=== PATIENT | female | born 1935 | race African-American/Black ===

== ENCOUNTER 2019-08-13 13:43 | Inpatient (IN) | payer MEDICARE, OTHER ==
[~2019-08-13] VITALS: Ht 160 cm; Wt 82.6 kg
[2019-08-13 15:41] LABS: PROTHROMBIN TIME 10.5 sec (9.6-11.0)
[2019-08-13 15:42] LABS: BASOPHILS % 0.5 % (0.0-2.0); EOSINOPHILS % 1.5 % (0.0-5.0); HEMATOCRIT. 36.8 % (36.0-48.0); HEMOGLOBIN. 12.1 g/dL (12.0-16.0); MEAN CORPUSCULAR HEMOGLOBIN 30.8 pg (28.0-32.0); MEAN CORPUSCULAR VOLUME 93.8 fL (81.0-99.0); MEAN PLATELET VOLUME 8.4 fl (7.4-10.4); MONOCYTES % 8.4 % (2.0-8.0); NEUTROPHILS % 76.6 % (40.0-76.0); PLATELET 262 x1000/uL (130-400); RED BLOOD CELL COUNT 3.93 mill/uL (4.2-5.4); RED CELL DISTRIBUTION WIDTH 15.1 % (11.6-14.6)
[2019-08-13 15:43] LABS: CHLORIDE 108 mEq/L (98-107)
[2019-08-13 15:48] LABS: ETHANOL BLOOD < 10 mg/dL
[2019-08-13] MEDS ORDERED: SODIUM CHLORIDE 0.9% 500 ML IV ONE (16:00)
[2019-08-13] MEDS ORDERED: DOCUSATE SODIUM 100MG CAPSULE PO PRN (19:15)
[2019-08-13] MEDS ORDERED: LORAZEPAM 0.5MG TABLET PO PRN (19:15)
[2019-08-13] MEDS ORDERED: ONDANSETRON HCL 4MG/2ML INJ IV PRN (19:15)
[2019-08-13] MEDS ORDERED: ACETAMINOPHEN 325MG TABLET PO PRN (19:15)
[2019-08-13] MEDS ORDERED: IPRATROPIUM/ALBUTEROL 0.5-3(2.5)MG/3ML NEB HHN PRN (19:15)
[2019-08-13] MEDS ORDERED: GUAIFENESIN 200MG/10ML SUGAR FREE UDC PO PRN (19:15)
[2019-08-13] MEDS ORDERED: HYDROCODONE/ACETAMINOPHEN 5/325MG TABLET PO PRN (19:15)
[2019-08-13 19:47] LABS: CLARITY URINE CLEAR (CLEAR); COLOR URINE YELLOW (YELLOW); KETONES URINE NEGATIVE (NEGATIVE); LEUKOCYTE ESTERASE URINE 1+ (NEGATIVE); NITRITE URINE NEGATIVE (NEGATIVE); OCCULT BLOOD URINE 1+ (NEGATIVE); PH URINE 8.5 (4.5-8.0); PROTEIN URINE NEGATIVE (NEGATIVE); SPECIFIC GRAVITY URINE 1.014 (1.005-1.030)
[2019-08-13 20:12] LABS: *AMPHETAMINES SCREEN URINE NEGATIVE (NEGATIVE); *BARBITURATES SCREEN URINE NEGATIVE (NEGATIVE); *BENZODIAZEPINES SCREEN URINE NEGATIVE (NEGATIVE); *COCAINE SCREEN URINE NEGATIVE (NEGATIVE); METHADONE URINE SCREEN NEGATIVE (NEGATIVE); OPIATES URINE SCREEN NEGATIVE (NEGATIVE)
[2019-08-13 20:13] LABS: CANNABINOID URINE SCREEN NEGATIVE (NEGATIVE); PHENCYCLIDINE URINE SCREEN NEGATIVE (NEGATIVE)
[2019-08-13] MEDS ORDERED: CEFTRIAXONE 1 G PREMIX 50 ML IV SCH (21:00)
[2019-08-13] MEDS: CLONIDINE 0.1MG TABLET PO PRN (21:58)
[2019-08-14 15:00] VITALS: BP 152/73
[2019-08-14 16:34] VITALS: BP 166/79
[2019-08-14 17:00] VITALS: BP 152/68
[2019-08-14] MEDS ORDERED: CEFTRIAXONE 1 G PREMIX 50 ML IV SCH (18:00)
[2019-08-14 20:00] VITALS: BP 182/82
[2019-08-14] MEDS: CEFTRIAXONE 1 G PREMIX 50 ML IV SCH (21:56)
[2019-08-15] VITALS (7 sets, daily range): BP systolic 141–181; BP diastolic 55–86
[2019-08-15] MEDS ORDERED: KETOROLAC 15MG/ML VIAL IV PRN
[2019-08-15] MEDS ORDERED: TROL141. TP (03:51)
[2019-08-15] MEDS ORDERED: ACET-2708 MT (03:51)
[2019-08-15] MEDS ORDERED: NIFE60TA82 MT (03:51)
[2019-08-15] MEDS ORDERED: PROT40 MT (03:51)
[2019-08-15] MEDS ORDERED: ASPI325T85 MT (03:51)
[2019-08-15] MEDS ORDERED: MEMA10TA55 MT (03:51)
[2019-08-15] MEDS ORDERED: SIMV-43 MT (03:51)
[2019-08-15] MEDS ORDERED: CALC-1068 PO (03:51)
[2019-08-15] MEDS ORDERED: VENL-180 PO (03:51)
[2019-08-15] MEDS ORDERED: METO100T16 MT (03:51)
[2019-08-15] MEDS ORDERED: LOSA100T32 MT (03:51)
[2019-08-15] MEDS: CLONIDINE 0.1MG TABLET PO PRN (04:00)
[2019-08-15 07:06] LABS: BASOPHILS % 0.4 % (0.0-2.0); EOSINOPHILS % 2.7 % (0.0-5.0); HEMATOCRIT. 33.7 % (36.0-48.0); HEMOGLOBIN. 11.4 g/dL (12.0-16.0); LYMPHOCYTES % 20.2 % (20.0-50.0); MEAN CORPUSCULAR HEMOGLOBIN 31.3 pg (28.0-32.0); MEAN CORPUSCULAR VOLUME 92.8 fL (81.0-99.0); MEAN PLATELET VOLUME 7.4 fl (7.4-10.4); MONOCYTES % 10.8 % (2.0-8.0); NEUTROPHILS % 65.9 % (40.0-76.0); PLATELET 198 x1000/uL (130-400); RED BLOOD CELL COUNT 3.63 mill/uL (4.2-5.4); RED CELL DISTRIBUTION WIDTH 14.7 % (11.6-14.6)
[2019-08-15 07:14] LABS: CHLORIDE 105 mEq/L (98-107)
[2019-08-15 07:35] LABS: VITAMIN B12 SERUM 490 pg/mL (211-911)
[2019-08-15] MEDS ORDERED: AMLODIPINE 5MG TABLET PO SCH (09:00)
[2019-08-15] MEDS: NIFEDIPINE XL 60MG TAB PO SCH (10:29)
[2019-08-15] MEDS: PANTOPRAZOLE 40MG DR TABLET PO SCH (10:29)
[2019-08-15] MEDS: ASPIRIN 81MG EC TABLET PO SCH (10:29)
[2019-08-15] MEDS: METOPROLOL TARTRATE 100MG TABLET PO SCH ×2 (10:29→21:22)
[2019-08-15] MEDS: MEMANTINE HCL 10MG TABLET PO SCH (10:29)
[2019-08-15] MEDS: VENLAFAXINE HCL 37.5MG TABLET PO SCH (10:30)
[2019-08-15] MEDS: LOSARTAN POTASSIUM 100 MG TABLET PO SCH (10:30)
[2019-08-15] MEDS: CEFTRIAXONE 1 G PREMIX 50 ML IV SCH (19:55)
[2019-08-15] MEDS: ATORVASTATIN CALCIUM 40MG TABLET PO SCH (21:21)
[2019-08-16] VITALS: BP 143/62
[2019-08-16 04:00] VITALS: BP 114/72
[2019-08-16 08:00] VITALS: BP 165/84
[2019-08-16] MEDS: ASPIRIN 81MG EC TABLET PO SCH (08:38)
[2019-08-16] MEDS: PANTOPRAZOLE 40MG DR TABLET PO SCH (08:38)
[2019-08-16] MEDS: METOPROLOL TARTRATE 100MG TABLET PO SCH ×2 (08:39→20:40)
[2019-08-16] MEDS: NIFEDIPINE XL 60MG TAB PO SCH (08:39)
[2019-08-16] MEDS: MEMANTINE HCL 10MG TABLET PO SCH (08:39)
[2019-08-16] MEDS: LOSARTAN POTASSIUM 100 MG TABLET PO SCH (08:39)
[2019-08-16] MEDS: VENLAFAXINE HCL 37.5MG TABLET PO SCH (08:39)
[2019-08-16 12:00] VITALS: BP 139/70
[2019-08-16 16:43] VITALS: BP 145/69
[2019-08-16 20:00] VITALS: BP 138/64
[2019-08-16] MEDS: CEFTRIAXONE 1 G PREMIX 50 ML IV SCH (20:40)
[2019-08-16] MEDS: ATORVASTATIN CALCIUM 40MG TABLET PO SCH (20:40)
[2019-08-17] VITALS: BP 109/82
[2019-08-17 04:00] VITALS: BP 117/65
[2019-08-17 08:00] VITALS: BP 132/77
[2019-08-17] MEDS: VENLAFAXINE HCL 37.5MG TABLET PO SCH (09:29)
[2019-08-17] MEDS: ASPIRIN 81MG EC TABLET PO SCH (09:29)
[2019-08-17] MEDS: METOPROLOL TARTRATE 100MG TABLET PO SCH ×2 (09:29→20:36)
[2019-08-17] MEDS: MEMANTINE HCL 10MG TABLET PO SCH (09:29)
[2019-08-17] MEDS: PANTOPRAZOLE 40MG DR TABLET PO SCH (09:30)
[2019-08-17] MEDS: NIFEDIPINE XL 60MG TAB PO SCH (09:30)
[2019-08-17] MEDS: LOSARTAN POTASSIUM 100 MG TABLET PO SCH (09:34)
[2019-08-17 12:00] VITALS: BP 131/65
[2019-08-17] MEDS ORDERED: DIPHENHYDRAMINE 50MG/ML VIAL IV PRN (16:15)
[2019-08-17 16:51] VITALS: BP 131/82
[2019-08-17 20:00] VITALS: BP 153/72
[2019-08-17] MEDS: CEFTRIAXONE 1 G PREMIX 50 ML IV SCH (20:36)
[2019-08-17] MEDS: ATORVASTATIN CALCIUM 40MG TABLET PO SCH (20:36)
[2019-08-18] VITALS: BP 110/68
[2019-08-18 04:00] VITALS: BP 141/87
[2019-08-18 08:00] VITALS: BP 142/68
[2019-08-18 08:26] VITALS: BP 142/68
[2019-08-18] MEDS: LOSARTAN POTASSIUM 100 MG TABLET PO SCH (08:50)
[2019-08-18] MEDS: MEMANTINE HCL 10MG TABLET PO SCH (08:51)
[2019-08-18] MEDS: METOPROLOL TARTRATE 100MG TABLET PO SCH (08:51)
[2019-08-18] MEDS: NIFEDIPINE XL 60MG TAB PO SCH (08:51)
[2019-08-18] MEDS: VENLAFAXINE HCL 37.5MG TABLET PO SCH (08:51)
[2019-08-18] MEDS ORDERED: CLOPIDOGREL 75MG TABLET PO SCH (09:00)
[2019-08-18] MEDS: PANTOPRAZOLE 40MG DR TABLET PO SCH (09:03)
[2019-08-18 09:21] LABS: HEMATOCRIT 34.1 % (36.0-48.0); HEMOGLOBIN 11.7 g/dL (12.0-16.0); MEAN CORPUSCULAR HEMOGLOBIN 31.3 pg (28.0-32.0); MEAN CORPUSCULAR VOLUME 91.5 fL (81.0-99.0); PLATELET 234 x1000/uL (130-400); RED BLOOD CELL COUNT 3.73 mill/uL (4.2-5.4); RED CELL DISTRIBUTION WIDTH 14.3 % (11.6-14.6)
[2019-08-18 09:38] LABS: CHLORIDE 107 mEq/L (98-107)
[2019-08-18 12:00] VITALS: BP 124/69
[2019-08-18 13:40] VITALS: BP 124/69
[2019-08-18] MEDS ORDERED: BISACODYL 10MG SUPP PR PRN (15:45)
[2019-08-19] MEDS ORDERED: FAMOTIDINE 40MG TABLET PO SCH (09:00)
== END 2019-08-18 16:50 | DRG 65 ==
LOC: ER 13:43 → 6WST 18:44 → EDBEDREQTM 18:50 → EDBEDREQ 18:50 → ENRESERV 08-14 12:50
PROVIDERS: ADMIT Internal Medicine; ATTEND Internal Medicine
DX: I63.531 Cerebral infarction due to unspecified occlusion or stenosis of right posterior cerebral artery (principal); N39.0 Urinary tract infection, site not specified; G93.40 Encephalopathy, unspecified; I63.81 Other cerebral infarction due to occlusion or stenosis of small artery; I95.1 Orthostatic hypotension; D72.821 Monocytosis (symptomatic); E78.5 Hyperlipidemia, unspecified; E78.00 Pure hypercholesterolemia, unspecified; F03.90 Unspecified dementia, unspecified severity, without behavioral disturbance, psychotic disturbance, mood disturbance, and anxiety; I11.9 Hypertensive heart disease without heart failure; R31.9 Hematuria, unspecified; R05 Cough; G90.8 Other disorders of autonomic nervous system; I70.0 Atherosclerosis of aorta; L82.1 Other seborrheic keratosis; B96.20 Unspecified Escherichia coli [E. coli] as the cause of diseases classified elsewhere; E87.5 Hyperkalemia; Z90.710 Acquired absence of both cervix and uterus; Z88.6 Allergy status to analgesic agent; Z88.8 Allergy status to other drugs, medicaments and biological substances
CPT/HCPCS: 36415; 70551; 71045; 80048; 80053; 80061; 80305; 80320; 81003; 82607; 83036; 83605; 83880; 84145; 84443; 84484; 85025; 85027; 87077; 87186; 87804; 93005; 93306; 93880; 93970; 96361; 96365; 97163; 97167; 97530; 99285; J0696; J7040; G0480